=== PATIENT | female | born 2000 | race Caucasian/White ===

== ENCOUNTER 2021-04-04 11:40 | Outpatient (CLI) | payer BC | END 2021-04-04 11:41 | disposition home or self-care (01) | LOC: BURRAD 11:40 | PROVIDERS: ATTEND Physician Assistant | DX: M25.511 Pain in right shoulder (principal) ==

== ENCOUNTER → 2023-10-30 | Emergency (ER) | payer BC ==
[2023-10-31 00:59] LABS: #Basophils 0.1 thou/uL (0.0-0.2); #Eosinphils 0.3 thou/uL (0.0-0.7); #Lymphocytes 2.3 thou/uL (1.20-3.40); #Monocytes 0.5 thou/uL (0.11-0.59); #Neutrophils 4.5 thou/uL (1.40-6.50); %Basophils 0.9 % (0.0-1.0); %Eosinophils 3.3 % (0.0-10.0); %Lymphocytes 29.9 % (21.0-51.0); %Monocytes 6.6 % (0.0-10.0); %Neutrophils 59.2 % (42.0-75.0); Hematocrit 37.8 % (36.0-47.0); Hemoglobin 13.8 g/dL (12.0-16.0); Mean Corpuscular HGB CONC 36.4 g/dL (32.0-36.0); Mean Corpuscular Hemoglobin 29.9 pg (27.0-31.0); Mean Corpuscular Volume 82.2 fl (78.0-98.0); Mean Platelet Volume 5.8 fL (7.4-10.4); Platelet Count 317 10x3/uL (130-400); RBC Distribution Width 10.4 % (11.5-14.5); White Blood Cell (WBC) Count 7.7 10x3/uL (4.8-10.8)
[2023-10-31 01:02] LABS: Bilirubin Negative (Negative); Blood, Urine Negative (Negative); Clarity Clear (Clear); Glucose, Urine (Dipstick) Negative (Negative); Ketone, Urine Negative (Negative); Leukocyte Negative (Negative); Nitrite Negative (Negative); Protein, Urine (Dipstick) Negative (Neg-Trace); Specific Gravity, Urine 1.025 (1.005-1.030); Urobilinogen 0.2 mg/dL (Less than 2)
[2023-10-31 01:07] LABS: Pregu Control Background? CLEAR/WHITE (CLR/WHITE); Pregu Control Bar Appear? YES (CONTROL BAR); Specific Gravity 1.025 (1.002-1.036)
[2023-10-31 01:09] LABS: Pregnancy Test - Urine (BHCG) POSITIVE (Negative)
[2023-10-31 01:15] LABS: Bacteria/HPF 1+ HPF (None Seen); CAUTI Indications for Culture Dysuria,urgency,freq; RBC/HPF 0-3 HPF (0-3); Transitional Epithelial 0-3 HPF (None Seen); WBC/HPF 0-3 HPF (0-3)
[2023-10-31 01:16] LABS: Urine Culture Reflex No No
[2023-10-31 01:22] LABS: ALT (SGPT) 26 U/L (8-55); AST (SGOT) 21 U/L (5-34); Albumin 4.3 g/dL (3.5-5.0); Alkaline Phosphatase 51 U/L (40-110); Anion Gap 12 mmol/L (10-20); BUN (Urea Nitrogen) 10 mg/dL (7.0-18.7); Bilirubin, Total 0.3 mg/dL (0.2-1.2); Calc. Creatinine Clearance 0 mL/min (70-130); Calcium 9.3 mg/dL (7.8-10.44); Carbon Dioxide 25 mmol/L (22-29); Chloride 108 mmol/L (98-107); Estimated GFR 112; Globulin 2.3 g/dL (2.4-3.5); Glucose 93 mg/dL (70-105); Potassium 3.8 mmol/L (3.5-5.1); Protein, Total 6.6 g/dL (6.0-8.3); Sodium 141 mmol/L (136-145)
[2023-10-31 01:23] LABS: Troponin I Less than 0.010 ng/mL (< 0.028)
[2023-10-31 02:26] LABS: Troponin I Less than 0.010 ng/mL (< 0.028)
== END ==
LOC: BURERS 23:57
DX: O99.891 Other specified diseases and conditions complicating pregnancy (principal); R07.9 Chest pain, unspecified; O99.330 Smoking (tobacco) complicating pregnancy, unspecified trimester; F17.290 Nicotine dependence, other tobacco product, uncomplicated; Z3A.00 Weeks of gestation of pregnancy not specified
CPT/HCPCS: 80053; 81001; 81025; 84484; 84702; 85025; 85379

== ENCOUNTER 2024-01-07 15:34 | Emergency (ER) | payer BC | END 2024-01-07 17:24 | disposition home or self-care (01) | LOC: BURERS 15:34 | DX: J06.9 Acute upper respiratory infection, unspecified (principal); R53.1 Weakness; F17.200 Nicotine dependence, unspecified, uncomplicated | CPT/HCPCS: 71045; 93005 ==

== ENCOUNTER 2024-01-12 23:18 | Emergency (ER) | payer BC | END 2024-01-12 23:50 | disposition home or self-care (01) | LOC: BURERS 23:18 | DX: J06.9 Acute upper respiratory infection, unspecified (principal); F17.200 Nicotine dependence, unspecified, uncomplicated | CPT/HCPCS: 99283 ==

== ENCOUNTER 2024-01-30 | Emergency (ER) | payer BC ==
[2024-01-30] MEDS ORDERED: Ibuprofen 800 MG TAB ONE (00:19)
== END 2024-01-30 00:23 ==
LOC: BURERS
DX: M54.6 Pain in thoracic spine (principal); X50.0XXA Overexertion from strenuous movement or load, initial encounter; Y93.64 Activity, baseball; Y92.214 College as the place of occurrence of the external cause; Z87.891 Personal history of nicotine dependence
CPT/HCPCS: 99283

== ENCOUNTER 2024-02-07 15:04 | Emergency (ER) | payer BC ==
[2024-02-07 15:51] LABS: #Eosinphils 0.1 thou/uL (0.0-0.7); #Lymphocytes 1.3 thou/uL (1.20-3.40); #Monocytes 0.3 thou/uL (0.11-0.59); %Basophils 0.9 % (0.0-1.0); %Eosinophils 2.4 % (0.0-10.0); %Lymphocytes 27.8 % (21.0-51.0); %Monocytes 6.7 % (0.0-10.0); %Neutrophils 62.3 % (42.0-75.0); Hemoglobin 13.2 g/dL (12.0-16.0); Mean Corpuscular HGB CONC 33.9 g/dL (32.0-36.0); Mean Corpuscular Hemoglobin 28.5 pg (27.0-31.0); Mean Corpuscular Volume 84.1 fl (78.0-98.0); Mean Platelet Volume 5.9 fL (7.4-10.4); Platelet Count 270 10x3/uL (130-400); RBC Distribution Width 10.4 % (11.5-14.5); Red Blood Cell (RBC) Count 4.64 mill/uL (4.20-5.40); White Blood Cell (WBC) Count 4.8 10x3/uL (4.8-10.8)
[2024-02-07 15:56] LABS: ALT (SGPT) 17 U/L (8-55); AST (SGOT) 19 U/L (5-34); Albumin 4.3 g/dL (3.5-5.0); Alkaline Phosphatase 38 U/L (40-110); Anion Gap 13 mmol/L (10-20); BUN (Urea Nitrogen) 14 mg/dL (7.0-18.7); Bilirubin, Total 0.3 mg/dL (0.2-1.2); Calc. Creatinine Clearance 0 mL/min (70-130); Carbon Dioxide 21 mmol/L (22-29); Chloride 109 mmol/L (98-107); Estimated GFR 91; Globulin 2.3 g/dL (2.4-3.5); Glucose 100 mg/dL (70-105); Potassium 3.5 mmol/L (3.5-5.1); Protein, Total 6.6 g/dL (6.0-8.3); Sodium 139 mmol/L (136-145)
[2024-02-07 15:57] LABS: Troponin I Less than 0.010 ng/mL (< 0.028)
== END 2024-02-07 16:34 | disposition home or self-care (01) ==
LOC: BURERS 15:04
DX: F41.9 Anxiety disorder, unspecified (principal); F17.200 Nicotine dependence, unspecified, uncomplicated
CPT/HCPCS: 36415; 80053; 84443; 84484; 85025

== ENCOUNTER 2024-02-25 16:44 | Emergency (ER) | payer BC | END 2024-02-25 17:15 | disposition home or self-care (01) | LOC: BURERS 16:44 | DX: F41.9 Anxiety disorder, unspecified (principal); F17.200 Nicotine dependence, unspecified, uncomplicated | CPT/HCPCS: 93005 ==

== ENCOUNTER 2025-06-01 10:42 | Emergency (ER) | payer BC | END 2025-06-01 11:11 | disposition home or self-care (01) | LOC: BURERS 10:42 | DX: G43.809 Other migraine, not intractable, without status migrainosus (principal); X58.XXXA Exposure to other specified factors, initial encounter; Z87.891 Personal history of nicotine dependence; Y99.0 Civilian activity done for income or pay | CPT/HCPCS: 99283 ==